=== PATIENT | male | born 1990 | race Two or more races ===

== ENCOUNTER 2019-12-24 17:55 | Inpatient (IN) | payer OTHER, SELFPAY ==
[~2019-12-24] VITALS: Ht 185.4 cm; Wt 146.9 kg
--- NOTE | 2019-12-24 18:44 | NUR ---
PT TO RM FROM TRIAGE, PT AMBULATES WITH STEADY GAIT
--- NOTE | 2019-12-24 19:00 | NUR ---
Report from Mackenzie BARRAZA.
[2019-12-24 19:10] LABS: BASOPHILS % (AUTO) 0 % (0-1); EOSINOPHILS % (AUTO) 0 % (1-7); LYMPHOCYTES # (AUTO) 0.89 x10^3/uL (1-3.4); LYMPHOCYTES % (AUTO) 11 % (22-44); MD NO; MEAN CORPUSCULAR HEMOGLOBIN 28.7 pg (27.5-34.5); MEAN CORPUSCULAR HGB CONC 33.2 g/dL (33.2-36.2); MEAN CORPUSCULAR VOLUME 86.5 fL (81-97); MEAN PLATELET VOLUME 8.9 fL (7.4-10.4); MONOCYTES # (AUTO) 0.59 x10^3/uL (0.2-0.8); MONOCYTES % (AUTO) 8 % (2-9); NEUTROPHILS # (AUTO) 6.49 x10^3/uL (1.8-6.8); NEUTROPHILS % (AUTO) 81 % (42-75); PLATELET COUNT 211 x10^3/uL (130-400); RED BLOOD COUNT 5.64 x10^6/uL (4.38-5.82); RED CELL DISTRIBUTION WIDTH 14.1 % (9.4-14.8)
[2019-12-24] MEDS ORDERED: ACETAMINOPHEN 500 MG TABLET ONE (19:10)
[2019-12-24] MEDS ORDERED: DEXAMETHASONE 4 MG/ML, 1ML ONE (19:12)
[2019-12-24 19:21] LABS: ALBUMIN 3.4 g/dL (3.4-5.0); ANION GAP 9 mmol/L (5-15); CALCIUM 8.3 mg/dL (8.5-10.1); CHLORIDE 106 mmol/L (98-107); CREATININE 1.21 mg/dL (0.7-1.3)
--- NOTE | 2019-12-24 19:27 | NUR ---
MEDICATED PER AUG. VSS. PT ON 1L NC SAT 95%. LAB AT BEDSIDE FOR BLOOD CULTURES.
[2019-12-24] MEDS ORDERED: SODIUM CHLORIDE 0.9% 1,000ML IVBOLUS ONE (19:30)
[2019-12-24] MEDS ORDERED: ACETAMINOPHEN 500 MG TABLET PO ONE (19:30)
[2019-12-24] MEDS: PLEASE ENTER ALLERGIES MC SCH (19:30)
[2019-12-24] MEDS ORDERED: DEXAMETHASONE 4 MG/ML, 1ML IVPush ONE (19:30)
[2019-12-24] MEDS ORDERED: SODIUM CHLORIDE FLUSH 10ML SYR IVF ONE (19:30)
--- NOTE | 2019-12-24 20:21 | NUR ---
PT ABMULATED ON RA DESATTING TO 85%, PLACED BACK ON 2L NC NOW 95%.
[2019-12-24] MEDS ORDERED: IBUPROFEN 600 MG TABLET ONE (20:24)
[2019-12-24] MEDS ORDERED: IBUPROFEN 600 MG TABLET PO ONE (20:30)
--- NOTE | 2019-12-24 20:50 | NUR ---
Admitting provider at bedside.
[2019-12-24] MEDS ORDERED: POLYETHYLENE GLYCOL 17 GM PACKET PO PRN (21:00)
[2019-12-24] MEDS ORDERED: POTASSIUM CHLORIDE 20 MEQ TAB.ER.PRT PO ONE (21:00)
[2019-12-24] MEDS ORDERED: MELATONIN 5 MG TABLET PO PRN (21:00)
[2019-12-24] MEDS ORDERED: GUAIFENESIN/DM 200-20MG, 10ML UDC PO PRN (21:00)
[2019-12-24] MEDS ORDERED: ACETAMINOPHEN 325 MG TABLET PO PRN (21:00)
[2019-12-24] MEDS ORDERED: ONDANSETRON 2MG/ML, 2ML IVPush PRN (21:00)
[2019-12-24] MEDS ORDERED: HYDROcodone/APAP 5/325 TABLET PO PRN (21:00)
[2019-12-24] MEDS ORDERED: DOXYCYCLINE 100MG TABLET PO ONE (21:00)
[2019-12-24] MEDS ORDERED: KETOROLAC 30 MG/1 ML IV PRN (21:00)
[2019-12-24] MEDS ORDERED: BISACODYL 10 MG SUPP PR PRN (21:00)
[2019-12-24] MEDS ORDERED: ENOXAPARIN 40 MG/0.4 ML ONE (21:42)
[2019-12-24] MEDS ORDERED: POTASSIUM CHLORIDE 20 MEQ TAB.ER.PRT ONE (21:42)
[2019-12-24] MEDS ORDERED: CEFTRIAXONE PMX 1GM/50ML 50 ML ONE (21:43)
[2019-12-24] MEDS ORDERED: DOXYCYCLINE 100MG TABLET ONE (21:44)
[2019-12-24] MEDS: CEFTRIAXONE PMX 1GM/50ML 50 ML IV SCH (21:51)
[2019-12-24] MEDS: ENOXAPARIN 40 MG/0.4 ML SQ SCH (21:51)
[2019-12-24] MEDS: AZITHROMYCIN 500 MG in SODIUM CHLORIDE 0.9% 250 ML IV SCH (22:21)
--- NOTE | 2019-12-24 23:34 | NUR ---
PROVIDED SNACKS TO PT. PLACED ON HOSPITAL BED.
[2019-12-25] MEDS: PLEASE ENTER ALLERGIES MC SCH ×2 (03:30→09:21)
[2019-12-25 05:38] LABS: ANION GAP 4 mmol/L (5-15); CALCIUM 8.5 mg/dL (8.5-10.1); CHLORIDE 109 mmol/L (98-107); CREATININE 1.26 mg/dL (0.7-1.3)
[2019-12-25 05:45] LABS: BASOPHILS % (AUTO) 0 % (0-1); EOSINOPHILS % (AUTO) 0 % (1-7); LYMPHOCYTES # (AUTO) 0.67 x10^3/uL (1-3.4); LYMPHOCYTES % (AUTO) 13 % (22-44); MD NO; MEAN CORPUSCULAR HEMOGLOBIN 29.1 pg (27.5-34.5); MEAN CORPUSCULAR HGB CONC 33.1 g/dL (33.2-36.2); MEAN CORPUSCULAR VOLUME 87.8 fL (81-97); MEAN PLATELET VOLUME 8.4 fL (7.4-10.4); MONOCYTES % (AUTO) 2 % (2-9); NEUTROPHILS # (AUTO) 4.34 x10^3/uL (1.8-6.8); NEUTROPHILS % (AUTO) 85 % (42-75); PLATELET COUNT 208 x10^3/uL (130-400); RED BLOOD COUNT 5.46 x10^6/uL (4.38-5.82); RED CELL DISTRIBUTION WIDTH 14.1 % (9.4-14.8)
--- NOTE | 2019-12-25 07:03 | NUR ---
REPORT GIVEN TO SULY BARRAZA.
[2019-12-25] MEDS ORDERED: SENNA/DOCUSATE TABLET ONE (08:45)
[2019-12-25] MEDS: SENNA/DOCUSATE TABLET PO SCH (09:27)
--- NOTE | 2019-12-25 09:31 | NUR ---
pt provided with meal tray. denies further needs at this time
--- NOTE | 2019-12-25 11:01 | NUR ---
pt in room watching tv. call light in reach. pt expresses no wants or needs at this time. pt encouraged to call for any needs
[2019-12-25 13:57] VITALS: BP 144/86
[2019-12-25] MEDS ORDERED: COLC0.6T37 PO (13:57)
[2019-12-25] MEDS ORDERED: GUAIFENESIN/DM 100-10MG, 5ML UDC PO PRN (16:00)
[2019-12-25 20:38] VITALS: BP 125/74
[2019-12-25] MEDS: CEFTRIAXONE PMX 1GM/50ML 50 ML IV SCH (21:55)
[2019-12-25] MEDS: ENOXAPARIN 40 MG/0.4 ML SQ SCH (21:55)
[2019-12-25] MEDS: AZITHROMYCIN 500 MG in SODIUM CHLORIDE 0.9% 250 ML IV SCH (22:36)
[2019-12-26 02:45] VITALS: BP 118/73
[2019-12-26 06:38] VITALS: BP 129/82
[2019-12-26] MEDS: SENNA/DOCUSATE TABLET PO SCH (08:50)
[2019-12-26 12:39] VITALS: BP 127/85
[2019-12-26 19:31] VITALS: BP 124/80
[2019-12-26] MEDS: CEFTRIAXONE PMX 1GM/50ML 50 ML IV SCH ×2 (21:30→21:53)
[2019-12-26] MEDS: ENOXAPARIN 40 MG/0.4 ML SQ SCH (21:53)
[2019-12-27 00:43] VITALS: BP 117/64
[2019-12-27] MEDS: CEFTRIAXONE PMX 1GM/50ML 50 ML IV SCH ×2 (03:23→05:09)
[2019-12-27] MEDS: AZITHROMYCIN 500 MG in SODIUM CHLORIDE 0.9% 250 ML IV SCH ×2 (04:00→05:52)
[2019-12-27 06:53] VITALS: BP 115/75
[2019-12-27] MEDS: SENNA/DOCUSATE TABLET PO SCH (09:00)
[2019-12-27 12:19] VITALS: BP 132/83
[2019-12-27] MEDS ORDERED: ASCO1500 PO (14:26)
[2019-12-27] MEDS ORDERED: CHOL10003 PO (14:26)
[2019-12-27] MEDS ORDERED: ZINC220T3 PO (14:26)
[2019-12-27] MEDS ORDERED: CEFD300C37 PO (14:26)
[2019-12-27] MEDS ORDERED: AZIT500T PO (14:26)
== END 2019-12-27 18:20 | disposition home or self-care (01) | DRG 193 ==
LOC: ED 21:11 → EDIP 21:44 → 4NW 12-25 13:53
PROVIDERS: ADMIT Internal Medicine; ATTEND Hospitalist
DX: J18.9 Pneumonia, unspecified organism (principal); J96.01 Acute respiratory failure with hypoxia; Z68.41 Body mass index [BMI] 40.0-44.9, adult; E87.6 Hypokalemia; E66.9 Obesity, unspecified; M10.9 Gout, unspecified; Z20.828 Contact with and (suspected) exposure to other viral communicable diseases; Z90.49 Acquired absence of other specified parts of digestive tract
CPT/HCPCS: 36415; 71045; 80048; 82040; 83605; 83735; 85025; 87040; 87635; 93005; G0378; J0456; J0696; J1100; J1650; J2405; J7030; J7050